=== PATIENT | male | born 1990 | race Caucasian/White ===

== ENCOUNTER 2024-06-18 20:30 | Emergency (ER) | payer OTHER, SELFPAY ==
[2024-06-18 21:10] VITALS: BP 124/90; PULSE 100; TEMP 37.6; O2SAT 95
--- NOTE | 2024-06-18 21:14 | XR_ITS ---
The [address] [address] Patient Name: ROMINA CANO MRN: [id number] date: 1990 Sex: M Assigned Patient Location: ER Current Patient Location: Accession/Order Number: [id number] Exam Date: 06/18/2024 21:25 Report Date: 06/18/2024 23:03 At the request of: PAWAN MESA Procedure: XR chest 1V EXAMINATION: XR chest 1V HISTORY: Cough COMPARISON: No relevant comparison available. FINDINGS: LUNGS: Trace amount of stranding within left lung base. Underexpanded lungs. VASCULATURE: No increased pulmonary vasculature. PLEURA: No pneumothorax, effusion, or pleural thickening. CARDIAC: No cardiomegaly or cardiac silhouette abnormality. MEDIASTINUM: No visible mass or adenopathy. BONES: No fracture or visible bone lesion. OTHER: Negative. XR/XR chest 1V IMPRESSION: 1. Low lung volume examination with trace amount of left basilar discoid atelectasis versus infiltrates. Electronically authenticated by: JESSICA GARIBAY Date: 06/18/2024 23:03
--- NOTE | 2024-06-18 21:21 | ED.URI1 ---
HPI - URI/Sore Throat General Chief Complaint: Upper Respiratory Infection Stated Complaint: RESPIR ILLNESS Time Seen by Provider: 06/18/24 21:01 Source: patient Limitations: no limitations History of Present Illness HPI Narrative: Patient is a 33-year-old male who presents to the emergency department for evaluation of cough and chest congestion for the last 3 days. He states he has now developed diarrhea with mucus. He reports a subjective feeling of fever but has not had any objective fevers at home. He has not had any nausea or vomiting. No sick contacts. He denies any significant nasal congestion. No medications taken prior to arrival. Related Data Previous Rx's ?Medication ?Instructions ?Recorded kqtywehimdacnqc-gvuzjbervecsecb-QA 10 ml PO Q6H PRN cold symptoms 06/18/24 2 mg-30 mg-10 mg/5 mL oral syrup #200 mL (Bromfed DM) ondansetron 4 mg disintegrating 4 mg PO Q6H PRN nausea and 06/18/24 tablet vomiting #12 tabs Allergies Allergy/AdvReac Type Severity Reaction Status Date / Time cephalexin (From Keflex) Allergy Unknown Unknown Verified 06/18/24 21:19 Penicillins Allergy Unknown Unknown Verified 06/18/24 21:19 ciprofloxacin (From Cipro) Allergy Unknown Verified 06/18/24 21:19 Review of Systems ROS Constitutional Denies: fever or chills Ears, nose, mouth, and throat Denies: throat pain or nasal congestion Cardiovascular Denies: chest pain Respiratory Reports: cough, change in phlegm color and chest congestion; Denies: shortness of breath or coughing up blood Gastrointestinal Denies: nausea or vomiting Musculoskeletal Denies: back pain or neck pain Integumentary/Breast Denies: rash Neurological Denies: numbness in extremities or weakness in extremities Hematologic/Lymphatic Denies: easy bruising or easy bleeding PFSH PFSH Social History Within the past year, how often did you have a drink containing alcohol: 2-4 times a month Smoking status: Never smoker Non-prescribed substance use: denies use Little interest or pleasure in doing things: not at all Feeling down, depressed, or hopeless: not at all Exam Narrative Exam Narrative: Gen.: Awake, alert, in no distress Head: Normocephalic, atraumatic ENT: Moist mucous membranes, bilateral TMs clear Respiratory: No respiratory distress, lungs clear bilaterally, no wheezing or rhonchi Cardio: Regular rate and rhythm Extremities: Moves extremities equally Psych: Normal mood and affect Neuro: No focal neuro deficit Skin: Warm, dry, intact Constitutional Vital Signs, click to edit/add: Last Vital Signs Temp 99.7 F 06/18/24 21:10 Pulse 100 H 06/18/24 21:10 Resp 18 06/18/24 21:10 BP 124/90 06/18/24 21:10 Pulse Ox 95 06/18/24 21:10 O2 Del Method Room Air 06/18/24 21:10 Course Vital Signs Vital signs: Vital Signs Temperature 99.7 F 06/18/24 21:10 Pulse Rate 100 H 06/18/24 21:10 Respiratory Rate 18 06/18/24 21:10 Blood Pressure 124/90 06/18/24 21:10 Pulse Oximetry 95 06/18/24 21:10 Oxygen Delivery Method Room Air 06/18/24 21:10 Temperature 99.7 F 06/18/24 21:10 Pulse Rate 100 H 06/18/24 21:10 Respiratory Rate 18 06/18/24 21:10 Blood Pressure 124/90 06/18/24 21:10 Pulse Oximetry 95 06/18/24 21:10 Oxygen Delivery Method Room Air 06/18/24 21:10 MDM - URI/Sore Throat MDM Narrative Medical decision making narrative: Patient is positive for influenza A, chest x-ray is unremarkable and he is hemodynamically stable. He was treated with Decadron, he is discharged home with Bromfed-DM and Zofran. Recommend Motrin and Tylenol, push fluids and return to the ER if symptoms change or worsen. SUPERVISED APC VISIT, PHYSICIAN ATTESTATION: Based on the medical record the care appears appropriate. ? Medical Records Attestation: I reviewed the patient's medical records. Lab Data Attestation: I reviewed the patient's lab results. Labs: Lab Results 06/18/24 Range/Units 21:18 Influenza Type A Ag Positive A Influenza Type B Ag Negative SARS-CoV-2 Ag (CV2AG) Negative (NEGATIVE) Imaging Data Chest x-ray: Attestation: I have reviewed the pertinent imaging results. Discharge Plan Discharge Chief Complaint: Upper Respiratory Infection Clinical Impression: Influenza A Patient Disposition: Home, Self-Care Time of Disposition Decision: 21:49 Condition: Good Prescriptions / Home Meds: New pxaonthzfoxkaxo-uxxhysuhn-EM [Bromfed DM] 2-30-10 mg/5 mL syrup 10 ml PO Q6H PRN (Reason: cold symptoms) Qty: 200 0RF ondansetron 4 mg tablet,disintegrating 4 mg PO Q6H PRN (Reason: nausea and vomiting) Qty: 12 0RF Print Language: Albanian Instructions: Influenza (ED) Referrals: JULIANE LOZANO [Primary Care Provider] - 1 week
[2024-06-18 21:40] LABS: Influenza Virus A Antigen Positive; Influenza Virus B Antigen Negative; Internal Control Within Normal Limits
[2024-06-18 21:41] LABS: Internal Control Within Normal Limits; SARS-CoV-2 Ag NEGATIVE (NEGATIVE)
[2024-06-18] MEDS: DEXAMETHASONE SOD PHOS 10 MG/ML VIAL PO (21:55)
== END 2024-06-18 22:00 | disposition home or self-care (01) ==
PROVIDERS: Physician Assistant; Emergency Provider Student in an Organized Health Care Education/Training Program; PCP Nurse Practitioner Family
DX: J10.1 Influenza due to other identified influenza virus with other respiratory manifestations (principal)
CPT/HCPCS: 71045; 87804; 87811; 99285; J1100